=== PATIENT | male | born 1930 | race Caucasian/White ===

== ENCOUNTER 2018-03-28 09:58 | Inpatient (IN) ==
[2018-03-28] MEDS ORDERED: FUROSEMIDE 100 MG/10 ML VIAL IV STA (10:27)
[2018-03-28 10:42] LABS: Basophils % 0.2 % (0.0-0.8); Eosinophils % 0.1 % (0.00-10.9); Hematocrit 38.5 VOL% (42.0-52.0); Hemoglobin 12.7 GM/DL (14.0-18.0); Immature Granulocytes % 0.7 %; Lymphocytes % 7.6 % (21.2-54.2); Mean Corpuscular Hemoglobin 28 PG (27-34); Mean Corpuscular Volume 84.1 FL (87-102); Mean Platelet Volume 11.2 FL (9.6-12.0); Monocytes % 14.6 % (1.7-12.7); Neutrophils # 10.5 10*3/uL (1.4-7.4); Neutrophils % 76.8 % (38.7-73.9); Platelet Count 185 T/CUMM (130-400); Red Blood Count 4.58 MC/CUMM (3.8-5.5); White Blood Count 13.7 T/CUMM (4-12)
[2018-03-28 10:50] LABS: Albumin 3.2 G/DL (3.4-5.0); Bilirubin,Total 1.7 MG/DL (0.2-1.0); Calcium 8.5 MG/DL (8.5-10.1); Osmolality,Calculated 284.7 MOS/KG (273-304); Potassium 4.3 MMOL/L (3.5-5.1); Total Protein 7.1 G/DL (6.4-8.3)
[2018-03-28 10:52] LABS: Troponin I Only 0.053 NG/ML (0.00-0.045)
[2018-03-28] MEDS ORDERED: ONDANSETRON 4 MG/2 ML VIAL IV PRN (15:29)
[2018-03-28] MEDS ORDERED: DEXTROSE 50% 25 GM/50 ML VIAL IV PRN (15:29)
[2018-03-28] MEDS ORDERED: GLUCAGON 1 MG VIAL IM PRN (15:29)
[2018-03-28] MEDS ORDERED: METOPROLOL TARTRATE 5 MG/5 ML VIAL IV STA (15:48)
[2018-03-28] MEDS: INSULIN REGULAR 100 UNIT/ML SUBCUT SCH ×2 (17:54→21:32)
[2018-03-28] MEDS: FUROSEMIDE 40 MG/4 ML VIAL IV SCH (17:54)
[2018-03-28 19:09] LABS: Apearance,Urine CLEAR (Clear); Bilirubin,Urine Negative (Negative); Blood, Urine Small mg/dL (Negative); Glucose,Urine (UA) Negative (Negative); Ketones,Urine Negative (Negative); Nitrite,Urine Negative (Negative); Protein,Urine 30 MG/DL; RBC,Urine 1 /HPF (0-4); Urine Color Yellow (Yellow); Urine Specific Gravity 1.008 (1.001-1.035); Urine Urobilinogen < 2.0 EU/DL (0.2-1.0); WBC,Urine <1 /HPF (0-6)
[2018-03-28] MEDS: FLUTICASONE 50 MCG NASAL SPRAY 16 GM BOTTLE BOTH NARES SCH (20:55)
[2018-03-28] MEDS: MONTELUKAST 10 MG TABLET PO SCH (20:56)
[2018-03-28] MEDS: MELATONIN 3 MG TABLET PO SCH (20:56)
[2018-03-28] MEDS: sitaGLIPtin 100 MG TABLET PO SCH (20:57)
[2018-03-28] MEDS: POTASSIUM CHLORIDE 10 MEQ TABLET PO SCH (20:57)
[2018-03-28] MEDS: PRAVASTATIN 20 MG TABLET PO SCH (20:57)
[2018-03-28] MEDS: APIXABAN 2.5 MG TABLET PO SCH (20:57)
[2018-03-28] MEDS: CARVEDILOL 3.125 MG TABLET PO SCH (20:57)
[2018-03-28] MEDS ORDERED: NON-FORMULARY MEDICATION (Tiotropium Br/Olodaterol Hcl [Stiolto Respimat Inhal Spray] 2 PU INH SCH (21:00)
[2018-03-29] MEDS: ALBUTEROL/IPRATROPIUM 3 ML NEB RESP TX PRN (05:27)
[2018-03-29 05:48] LABS: Basophils % 0.2 % (0.0-0.8); Eosinophils % 0.1 % (0.00-10.9); Hematocrit 40.7 VOL% (42.0-52.0); Immature Granulocytes % 0.5 %; Immature Granulocytes Absolute 0.08 #; Lymphocytes # 1.4 10*3/uL (1.4-4.0); Lymphocytes % 8.5 % (21.2-54.2); Mean Corpuscular HGB Conc 31.9 GM/DL (32-36); Mean Corpuscular Hemoglobin 28 PG (27-34); Mean Corpuscular Volume 86.6 FL (87-102); Mean Platelet Volume 11.3 FL (9.6-12.0); Monocytes # 2.1 10*3/uL (0.11-0.8); Monocytes % 13.1 % (1.7-12.7); Neutrophils # 12.7 10*3/uL (1.4-7.4); Neutrophils % 77.6 % (38.7-73.9); Platelet Count 170 T/CUMM (130-400); White Blood Count 16.3 T/CUMM (4-12)
[2018-03-29 06:24] LABS: Calcium 8.8 MG/DL (8.5-10.1); Osmolality,Calculated 283.5 MOS/KG (273-304); Potassium 4.3 MMOL/L (3.5-5.1); Risk Ratio 1.28; VLDL CHOLESTEROL 10.8 MG/DL
[2018-03-29] MEDS ORDERED: NON-FORMULARY MEDICATION (Biotin [Biotin] 1 MG) PO SCH (09:00)
[2018-03-29] MEDS ORDERED: amLODIPine 5 MG TABLET PO SCH (09:00)
[2018-03-29] MEDS: INSULIN GLARGINE 100 UNIT/ML SUBCUT SCH (09:21)
[2018-03-29] MEDS: COENZYME Q10 100 MG CAPSULE PO SCH (09:22)
[2018-03-29] MEDS: INSULIN REGULAR 100 UNIT/ML SUBCUT SCH ×4 (09:22→21:11)
[2018-03-29] MEDS: POTASSIUM CHLORIDE 10 MEQ TABLET PO SCH ×2 (09:23→21:00)
[2018-03-29] MEDS: MULTIVITAMIN (CENTRUM) TABLET PO SCH (09:23)
[2018-03-29] MEDS: APIXABAN 2.5 MG TABLET PO SCH ×2 (09:23→21:01)
[2018-03-29] MEDS: CARVEDILOL 3.125 MG TABLET PO SCH (09:23)
[2018-03-29] MEDS: GLUCOSAMINE 500 MG TABLET PO SCH (09:23)
[2018-03-29] MEDS: PANTOPRAZOLE 40 MG TABLET PO SCH (09:23)
[2018-03-29] MEDS: CHOLECALCIFEROL 5,000 UNIT TABLET PO SCH (09:23)
[2018-03-29] MEDS: FUROSEMIDE 40 MG/4 ML VIAL IV SCH ×2 (09:24→17:08)
[2018-03-29] MEDS: MOISTURIZING CREAM (EUCERIN) 113 GM JAR TOP SCH (13:17)
[2018-03-29] MEDS ORDERED: DILTIAZEM INJ 100 MG in SODIUM CHLORIDE 0.9% 100 ML IV SCH (15:00)
[2018-03-29] MEDS: sitaGLIPtin 100 MG TABLET PO SCH (21:01)
[2018-03-29] MEDS: CARVEDILOL 6.25 MG TABLET PO SCH (21:01)
[2018-03-29] MEDS: MONTELUKAST 10 MG TABLET PO SCH (21:01)
[2018-03-29] MEDS: PRAVASTATIN 20 MG TABLET PO SCH (21:01)
[2018-03-29] MEDS: MELATONIN 3 MG TABLET PO SCH (21:01)
[2018-03-29] MEDS: ACETAMINOPHEN 325 MG TABLET PO PRN (21:10)
[2018-03-29] MEDS: FLUTICASONE 50 MCG NASAL SPRAY 16 GM BOTTLE BOTH NARES SCH (21:11)
[2018-03-30 05:03] LABS: Basophils % 0.2 % (0.0-0.8); Eosinophils # 0.1 10*3/uL (0.0-0.87); Eosinophils % 0.3 % (0.00-10.9); Hematocrit 34.9 VOL% (42.0-52.0); Hemoglobin 11.7 GM/DL (14.0-18.0); Immature Granulocytes % 0.7 %; Lymphocytes # 1.3 10*3/uL (1.4-4.0); Lymphocytes % 8.8 % (21.2-54.2); Mean Corpuscular HGB Conc 33.5 GM/DL (32-36); Mean Corpuscular Hemoglobin 28 PG (27-34); Mean Corpuscular Volume 83.7 FL (87-102); Mean Platelet Volume 10.9 FL (9.6-12.0); Neutrophils # 11.6 10*3/uL (1.4-7.4); Platelet Count 183 T/CUMM (130-400); Red Blood Count 4.17 MC/CUMM (3.8-5.5); Red Cell Distribution Width 14.7 % (9.3-17.3)
[2018-03-30 05:33] LABS: Calcium 8.4 MG/DL (8.5-10.1); Osmolality,Calculated 285.5 MOS/KG (273-304)
[2018-03-30] MEDS: CARVEDILOL 6.25 MG TABLET PO SCH ×2 (09:33→21:40)
[2018-03-30] MEDS: COENZYME Q10 100 MG CAPSULE PO SCH (09:33)
[2018-03-30] MEDS: APIXABAN 2.5 MG TABLET PO SCH ×2 (09:33→21:40)
[2018-03-30] MEDS: PANTOPRAZOLE 40 MG TABLET PO SCH (09:34)
[2018-03-30] MEDS: MULTIVITAMIN (CENTRUM) TABLET PO SCH (09:34)
[2018-03-30] MEDS: POTASSIUM CHLORIDE 10 MEQ TABLET PO SCH ×2 (09:34→21:40)
[2018-03-30] MEDS: FUROSEMIDE 40 MG/4 ML VIAL IV SCH ×2 (09:34→16:25)
[2018-03-30] MEDS: INSULIN GLARGINE 100 UNIT/ML SUBCUT SCH (09:34)
[2018-03-30] MEDS: GLUCOSAMINE 500 MG TABLET PO SCH (09:34)
[2018-03-30] MEDS: INSULIN REGULAR 100 UNIT/ML SUBCUT SCH ×4 (09:35→21:41)
[2018-03-30] MEDS: MOISTURIZING CREAM (EUCERIN) 113 GM JAR TOP SCH (09:40)
[2018-03-30] MEDS: CHOLECALCIFEROL 5,000 UNIT TABLET PO SCH (09:40)
[2018-03-30] MEDS: DILTIAZEM 60 MG TABLET PO SCH ×2 (14:08→21:40)
[2018-03-30] MEDS: cefTRIAXone 2,000 MG in SYRINGE 1 EACH IV SCH (16:25)
[2018-03-30] MEDS: AZITHROMYCIN INJ 500 MG in SODIUM CHLORIDE 0.9% 250 ML IV SCH (16:26)
[2018-03-30] MEDS ORDERED: ALUMINUM/MAGNES/SIMETH MAX STR 30 ML UDCUP PO PRN (18:33)
[2018-03-30] MEDS: ALBUTEROL/IPRATROPIUM 3 ML NEB RESP TX PRN ×2 (18:40→22:38)
[2018-03-30] MEDS: sitaGLIPtin 100 MG TABLET PO SCH ×2 (21:40→21:48)
[2018-03-30] MEDS: MELATONIN 3 MG TABLET PO SCH (21:40)
[2018-03-30] MEDS: MONTELUKAST 10 MG TABLET PO SCH (21:40)
[2018-03-30] MEDS: PRAVASTATIN 20 MG TABLET PO SCH (21:41)
[2018-03-30] MEDS: FLUTICASONE 50 MCG NASAL SPRAY 16 GM BOTTLE BOTH NARES SCH (21:41)
[2018-03-30] MEDS: ACETAMINOPHEN 325 MG TABLET PO PRN (21:41)
[2018-03-31 05:07] LABS: Basophils % 0.2 % (0.0-0.8); Eosinophils # 0.1 10*3/uL (0.0-0.87); Hematocrit 36.5 VOL% (42.0-52.0); Hemoglobin 11.9 GM/DL (14.0-18.0); Immature Granulocytes % 0.7 %; Immature Granulocytes Absolute 0.09 #; Lymphocytes % 8.1 % (21.2-54.2); Mean Corpuscular HGB Conc 32.6 GM/DL (32-36); Mean Corpuscular Hemoglobin 28 PG (27-34); Mean Corpuscular Volume 85.1 FL (87-102); Mean Platelet Volume 10.9 FL (9.6-12.0); Monocytes # 1.4 10*3/uL (0.11-0.8); Monocytes % 11.2 % (1.7-12.7); Neutrophils # 10.1 10*3/uL (1.4-7.4); Neutrophils % 78.8 % (38.7-73.9); Platelet Count 199 T/CUMM (130-400); Red Blood Count 4.29 MC/CUMM (3.8-5.5); Red Cell Distribution Width 14.4 % (9.3-17.3); White Blood Count 12.8 T/CUMM (4-12)
[2018-03-31 05:44] LABS: Calcium 8.3 MG/DL (8.5-10.1); Osmolality,Calculated 286.7 MOS/KG (273-304); Potassium 4.4 MMOL/L (3.5-5.1)
[2018-03-31] MEDS: APIXABAN 2.5 MG TABLET PO SCH ×2 (08:49→22:32)
[2018-03-31] MEDS: POTASSIUM CHLORIDE 10 MEQ TABLET PO SCH ×2 (08:49→22:31)
[2018-03-31] MEDS: GLUCOSAMINE 500 MG TABLET PO SCH (08:49)
[2018-03-31] MEDS: MULTIVITAMIN (CENTRUM) TABLET PO SCH (08:50)
[2018-03-31] MEDS: COENZYME Q10 100 MG CAPSULE PO SCH (08:50)
[2018-03-31] MEDS: CHOLECALCIFEROL 5,000 UNIT TABLET PO SCH (08:50)
[2018-03-31] MEDS: MOISTURIZING CREAM (EUCERIN) 113 GM JAR TOP SCH (08:50)
[2018-03-31] MEDS: INSULIN GLARGINE 100 UNIT/ML SUBCUT SCH (08:50)
[2018-03-31] MEDS: FUROSEMIDE 40 MG/4 ML VIAL IV SCH ×2 (08:50→15:17)
[2018-03-31] MEDS: CARVEDILOL 6.25 MG TABLET PO SCH ×2 (08:50→22:32)
[2018-03-31] MEDS: DILTIAZEM 60 MG TABLET PO SCH ×2 (08:50→22:32)
[2018-03-31] MEDS: PANTOPRAZOLE 40 MG TABLET PO SCH (08:50)
[2018-03-31] MEDS: INSULIN REGULAR 100 UNIT/ML SUBCUT SCH ×4 (08:51→22:30)
[2018-03-31] MEDS: LISINOPRIL 2.5 MG TABLET PO SCH (12:50)
[2018-03-31] MEDS: cefTRIAXone 2,000 MG in SYRINGE 1 EACH IV SCH (15:17)
[2018-03-31] MEDS: AZITHROMYCIN INJ 500 MG in SODIUM CHLORIDE 0.9% 250 ML IV SCH (15:17)
[2018-03-31] MEDS: ALBUTEROL/IPRATROPIUM 3 ML NEB RESP TX PRN (16:08)
[2018-03-31] MEDS: MONTELUKAST 10 MG TABLET PO SCH (22:31)
[2018-03-31] MEDS: MELATONIN 3 MG TABLET PO SCH (22:31)
[2018-03-31] MEDS: sitaGLIPtin 100 MG TABLET PO SCH (22:32)
[2018-03-31] MEDS: FLUTICASONE 50 MCG NASAL SPRAY 16 GM BOTTLE BOTH NARES SCH (22:32)
[2018-03-31] MEDS: PRAVASTATIN 20 MG TABLET PO SCH (22:32)
[2018-04-01 05:05] LABS: Basophils # 0.1 10*3/uL (0.0-0.2); Basophils % 0.4 % (0.0-0.8); Eosinophils # 0.3 10*3/uL (0.0-0.87); Eosinophils % 2.1 % (0.00-10.9); Hemoglobin 12.3 GM/DL (14.0-18.0); Immature Granulocytes % 0.9 %; Immature Granulocytes Absolute 0.11 #; Lymphocytes # 1.1 10*3/uL (1.4-4.0); Lymphocytes % 8.7 % (21.2-54.2); Mean Corpuscular HGB Conc 32.4 GM/DL (32-36); Mean Corpuscular Hemoglobin 27 PG (27-34); Mean Corpuscular Volume 84.4 FL (87-102); Mean Platelet Volume 10.5 FL (9.6-12.0); Monocytes # 1.4 10*3/uL (0.11-0.8); Monocytes % 11.3 % (1.7-12.7); Neutrophils # 9.6 10*3/uL (1.4-7.4); Neutrophils % 76.6 % (38.7-73.9); Platelet Count 241 T/CUMM (130-400); Red Cell Distribution Width 14.6 % (9.3-17.3); White Blood Count 12.5 T/CUMM (4-12)
[2018-04-01 05:39] LABS: Calcium 8.4 MG/DL (8.5-10.1); Osmolality,Calculated 285.3 MOS/KG (273-304); Potassium 4.1 MMOL/L (3.5-5.1)
[2018-04-01] MEDS: INSULIN GLARGINE 100 UNIT/ML SUBCUT SCH (09:01)
[2018-04-01] MEDS: PANTOPRAZOLE 40 MG TABLET PO SCH (09:02)
[2018-04-01] MEDS: DILTIAZEM CD 120 MG CAPSULE PO SCH (09:02)
[2018-04-01] MEDS: POTASSIUM CHLORIDE 10 MEQ TABLET PO SCH ×2 (09:02→20:49)
[2018-04-01] MEDS: APIXABAN 2.5 MG TABLET PO SCH ×2 (09:02→20:49)
[2018-04-01] MEDS: LISINOPRIL 2.5 MG TABLET PO SCH (09:02)
[2018-04-01] MEDS: COENZYME Q10 100 MG CAPSULE PO SCH (09:02)
[2018-04-01] MEDS: CARVEDILOL 6.25 MG TABLET PO SCH ×2 (09:02→20:48)
[2018-04-01] MEDS: MULTIVITAMIN (CENTRUM) TABLET PO SCH (09:02)
[2018-04-01] MEDS: CHOLECALCIFEROL 5,000 UNIT TABLET PO SCH (09:02)
[2018-04-01] MEDS: MOISTURIZING CREAM (EUCERIN) 113 GM JAR TOP SCH (09:03)
[2018-04-01] MEDS: FUROSEMIDE 40 MG/4 ML VIAL IV SCH ×2 (09:03→15:42)
[2018-04-01] MEDS: INSULIN REGULAR 100 UNIT/ML SUBCUT SCH ×5 (09:08→21:50)
[2018-04-01] MEDS: GLUCOSAMINE 500 MG TABLET PO SCH (09:12)
[2018-04-01] MEDS ORDERED: FUROSEMIDE 40 MG/4 ML VIAL IV SCH (13:46)
[2018-04-01] MEDS: cefTRIAXone 2,000 MG in SYRINGE 1 EACH IV SCH (15:31)
[2018-04-01] MEDS: AZITHROMYCIN INJ 500 MG in SODIUM CHLORIDE 0.9% 250 ML IV SCH (15:45)
[2018-04-01] MEDS: MELATONIN 3 MG TABLET PO SCH (20:48)
[2018-04-01] MEDS: MONTELUKAST 10 MG TABLET PO SCH (20:48)
[2018-04-01] MEDS: sitaGLIPtin 100 MG TABLET PO SCH (20:48)
[2018-04-01] MEDS: PRAVASTATIN 20 MG TABLET PO SCH (20:50)
[2018-04-01] MEDS: FLUTICASONE 50 MCG NASAL SPRAY 16 GM BOTTLE BOTH NARES SCH (20:53)
[2018-04-02 05:18] LABS: Basophils # 0.1 10*3/uL (0.0-0.2); Basophils % 0.6 % (0.0-0.8); Eosinophils # 0.2 10*3/uL (0.0-0.87); Eosinophils % 2.5 % (0.00-10.9); Hematocrit 38.5 VOL% (42.0-52.0); Hemoglobin 12.4 GM/DL (14.0-18.0); Immature Granulocytes % 1.5 %; Immature Granulocytes Absolute 0.14 #; Lymphocytes # 1.2 10*3/uL (1.4-4.0); Lymphocytes % 12.9 % (21.2-54.2); Mean Corpuscular HGB Conc 32.2 GM/DL (32-36); Mean Corpuscular Hemoglobin 28 PG (27-34); Mean Corpuscular Volume 85.9 FL (87-102); Mean Platelet Volume 10.4 FL (9.6-12.0); Monocytes # 1.2 10*3/uL (0.11-0.8); Monocytes % 12.4 % (1.7-12.7); Neutrophils # 6.7 10*3/uL (1.4-7.4); Neutrophils % 70.1 % (38.7-73.9); Platelet Count 243 T/CUMM (130-400); Red Blood Count 4.48 MC/CUMM (3.8-5.5); Red Cell Distribution Width 14.5 % (9.3-17.3); White Blood Count 9.6 T/CUMM (4-12)
[2018-04-02 05:48] LABS: Calcium 8.7 MG/DL (8.5-10.1); Osmolality,Calculated 286.4 MOS/KG (273-304)
[2018-04-02 07:43] VITALS: BP 137/75
[2018-04-02] MEDS: INSULIN GLARGINE 100 UNIT/ML SUBCUT SCH (09:05)
[2018-04-02] MEDS: PANTOPRAZOLE 40 MG TABLET PO SCH (09:07)
[2018-04-02] MEDS: POTASSIUM CHLORIDE 10 MEQ TABLET PO SCH (09:07)
[2018-04-02] MEDS: GLUCOSAMINE 500 MG TABLET PO SCH (09:07)
[2018-04-02] MEDS: MULTIVITAMIN (CENTRUM) TABLET PO SCH (09:07)
[2018-04-02] MEDS: COENZYME Q10 100 MG CAPSULE PO SCH (09:08)
[2018-04-02] MEDS: CARVEDILOL 6.25 MG TABLET PO SCH (09:08)
[2018-04-02] MEDS: CHOLECALCIFEROL 5,000 UNIT TABLET PO SCH (09:08)
[2018-04-02] MEDS: LISINOPRIL 2.5 MG TABLET PO SCH (09:08)
[2018-04-02] MEDS: DILTIAZEM CD 120 MG CAPSULE PO SCH (09:08)
[2018-04-02] MEDS: APIXABAN 2.5 MG TABLET PO SCH (09:08)
[2018-04-02] MEDS: FUROSEMIDE 40 MG/4 ML VIAL IV SCH (09:09)
[2018-04-02] MEDS: MOISTURIZING CREAM (EUCERIN) 113 GM JAR TOP SCH (09:13)
[2018-04-02] MEDS: INSULIN REGULAR 100 UNIT/ML SUBCUT SCH ×2 (09:13→12:40)
== END 2018-04-02 14:12 | disposition home health service (06) | DRG 293 ==
LOC: N.ED 09:58 → SUATTDRO 15:24 → N.EDINP 15:24 → N.TELEN 16:53
PROVIDERS: ADMIT Hospitalist; ATTEND Internal Medicine